=== PATIENT | female | born 1960 | race Caucasian/White ===

== ENCOUNTER 2018-12-26 05:32 | Inpatient (IN) | payer BC ==
[2018-12-26] MEDS: DEXAMETHASONE 4 MG/ML 1 ML INJ IV (06:32)
[2018-12-26] MEDS: oxyCODONE (CR) 10 MG TAB [oxyCONTIN] PO (06:32)
[2018-12-26] MEDS: LANSOPRAZOLE 30 MG CAP PO (06:32)
[2018-12-26] MEDS: ONDANSETRON 4 MG INJ IV (06:32)
[2018-12-26] MEDS: ACETAMINOPHEN 1000MG/100ML IV 100 ML IVPB (06:32)
[2018-12-26] MEDS: VANCOMYCIN 1 GM (PMX) 250 ML IVPB ×2 (06:36→17:58)
[2018-12-26] MEDS ORDERED: TRANEXAMIC ACID 1GM/100ML(PMX) 200 ML (07:03)
[2018-12-26] MEDS ORDERED: NEOSTIGMINE 3 MG/3 ML SYRINGE (07:41)
[2018-12-26] MEDS ORDERED: CEFAZOLIN 1 GM INJ (07:41)
[2018-12-26] MEDS ORDERED: ROCURONIUM 50 MG INJ (07:41)
[2018-12-26] MEDS ORDERED: PROPOFOL 20 ML (07:41)
[2018-12-26] MEDS ORDERED: GLYCOPYRROLATE 0.4 MG INJ (07:41)
[2018-12-26] MEDS ORDERED: MIDAZOLAM 1 MG/ML 2 ML INJ (07:43)
[2018-12-26] MEDS ORDERED: ONDANSETRON 4 MG INJ (07:43)
[2018-12-26] MEDS ORDERED: DEXAMETHASONE 4 MG/ML 5 ML INJ (07:43)
[2018-12-26] MEDS ORDERED: morphine SULFATE/PF (10 MG/10 ML) INJ (07:43)
[2018-12-26] MEDS ORDERED: FENTAnyl 50 MCG/ML VIAL (07:43)
[2018-12-26] MEDS: TRANEXAMIC ACID 1GM/100ML(PMX) 100 ML PRE-OP X1 IVPB (08:17)
[2018-12-26] MEDS ORDERED: HYDROmorphONE 0.5 MG/0.5 ML SYG IV ×2 (09:00)
[2018-12-26] MEDS ORDERED: HYDROmorphONE 1 MG/5 ML IV SYRINGE IV ×3 (09:00)
[2018-12-26] MEDS ORDERED: MEPERIDINE 25 MG INJ IV (09:00)
[2018-12-26] MEDS ORDERED: hydrALAzine 20 MG INJ IV (09:00)
[2018-12-26] MEDS ORDERED: NALBUPHINE HCL (10 MG/1 ML) INJ IV (09:00)
[2018-12-26] MEDS ORDERED: NALOXONE (0.4 MG/ML) INJ IV ×2 (09:00→10:30)
[2018-12-26] MEDS ORDERED: LABETALOL HCL 20MG INJ IV (09:00)
[2018-12-26] MEDS ORDERED: FENTAnyl 50 MCG/ML VIAL IV ×3 (09:00)
[2018-12-26] MEDS ORDERED: TRIMETHOBENZAMIDE 100 MG/ML VIAL IM ×2 (09:00)
[2018-12-26] MEDS ORDERED: ONDANSETRON 4 MG INJ IV ×2 (09:00)
[2018-12-26] MEDS ORDERED: ALBUTEROL 0.083% (NEB) 2.5 MG/3 ML AMP HHN (09:00)
[2018-12-26] MEDS ORDERED: MIDAZOLAM 1 MG/ML 2 ML INJ IV (09:00)
[2018-12-26] MEDS ORDERED: IPRATROPIUM (NEB) 0.5 MG/2.5 ML AMP HHN (09:00)
[2018-12-26] MEDS ORDERED: EPHEDrine 25 MG/5 ML SYG IV (09:00)
[2018-12-26] MEDS ORDERED: DIPHENHYDRAMINE 50 MG INJ IV ×2 (09:00)
[2018-12-26] MEDS: HIP PAIN COCKTAIL VANCO INJ (09:48)
[2018-12-26] MEDS: TRANEXAMIC ACID 1GM/100ML(PMX) 100 ML INTRA-OP X1 IVPB (09:49)
[2018-12-26] MEDS: BACITRACIN 50000 UNITS INJ (10:04)
[2018-12-26] MEDS ORDERED: SUGAMMADEX SODIUM 200 MG/2 ML VIAL IV (10:09)
[2018-12-26] MEDS: POLYMYXIN B 500000 UNIT INJ (10:10)
[2018-12-26] MEDS ORDERED: MAGNESIUM HYDROXIDE 30ML CUP PO (10:30)
[2018-12-26] MEDS ORDERED: BISACODYL 10 MG SUPP PR (10:30)
[2018-12-26] MEDS ORDERED: NACL 0.9% 3 ML SYG IV (10:30)
[2018-12-26] MEDS ORDERED: SENNA/DOCUSATE NA (8.6MG/50MG) TAB PO (10:30)
[2018-12-26] MEDS ORDERED: oxyCODONE 5 MG TAB PO (10:30)
[2018-12-26] MEDS ORDERED: NA PHOSPHATE/BIPHOS 133 ML ENEMA PR (10:30)
[2018-12-26] MEDS: DOCUSATE SODIUM 100 MG CAP PO (12:29)
[2018-12-26] MEDS: GABAPENTIN 100 MG CAP PO ×2 (12:40→20:57)
[2018-12-26] MEDS: LACTATED RINGER'S 1,000 ML IV (14:38)
[2018-12-26] MEDS: CEPASTAT LOZENGE MT (16:12)
[2018-12-26] MEDS: ATORVASTATIN 40 MG TAB PO (20:57)
[2018-12-27 05:12] LABS: WHITE BLOOD COUNT 9.4 10^3/ul (4.8-10.8)
[2018-12-27 05:12] LABS: ADD MAN DIFF? NO; BASOPHILS % 0.2 % (0.0-2.0); HEMATOCRIT 29.5 % (37.0-47.0); HEMOGLOBIN 9.7 g/dl (12.0-16.0); LYMPHOCYTES # 1.6 10^3/ul (0.8-2.9); LYMPHOCYTES % 16.5 % (15.0-51.0); MEAN CORPUSCULAR HEMOGLOBIN 30.8 pg (29.0-33.0); MEAN CORPUSCULAR HGB CONC 32.9 g/dl (32.0-37.0); MEAN CORPUSCULAR VOLUME 93.7 fl (82.0-101.0); MEAN PLATELET VOLUME 11.6 fl (7.4-10.4); MONOCYTE # 1.1 10^3/ul (0.3-0.9); MONOCYTES % 11.5 % (0.0-11.0); NEUTROPHIL # 6.8 10^3/ul (1.6-7.5); NEUTROPHILS % 71.6 % (39.0-77.0); PLATELET COUNT 230 10^3/UL (140-415); RED BLOOD COUNT 3.15 10^6/ul (4.20-5.40); RED CELL DISTRIBUTION WIDTH 13.7 % (11.5-14.5)
[2018-12-27] MEDS: VANCOMYCIN 1 GM (PMX) 250 ML IVPB (05:27)
[2018-12-27] MEDS: PANTOPRAZOLE (EC) 40 MG TAB PO (05:27)
[2018-12-27] MEDS: KETOROLAC 15 MG INJ IV (05:30)
[2018-12-27 05:33] LABS: ANION GAP 7 (5-13); BLOOD UREA NITROGEN 10 mg/dl (7-20); CALCIUM 9.2 mg/dl (8.4-10.2); CARBON DIOXIDE 28 mmol/L (21-31); CHLORIDE 105 mmol/L (97-110); CHOL/HDL RATIO 2.5 RATIO; CHOLESTEROL 167 mg/dl (100-200); CREATININE 0.61 mg/dl (0.44-1.00); Estimated GFR > 60 mL/min (>60); GLUCOSE 128 mg/dl (70-220); HDL CHOLESTEROL 65 mg/dl (35-98); LDL CHOLESTEROL,CALCULATED 73 mg/dl; MAGNESIUM 1.9 mg/dl (1.7-2.5); SODIUM 140 mmol/L (135-144); TRIGLYCERIDES 145 mg/dl (0-149)
[2018-12-27 05:41] LABS: INR 0.97
[2018-12-27] MEDS: METOPROLOL 25 MG TAB PO (08:12)
[2018-12-27] MEDS: LOSARTAN 50 MG TAB PO (08:12)
[2018-12-27] MEDS: GABAPENTIN 100 MG CAP PO ×2 (08:56→13:10)
[2018-12-27] MEDS: CELECOXIB 100 MG CAP PO (08:57)
[2018-12-27] MEDS: DOCUSATE SODIUM 100 MG CAP PO (08:57)
[2018-12-27] MEDS: ASPIRIN (EC) 81 MG TAB PO (08:57)
== END 2018-12-27 14:37 | disposition home health service (06) | DRG 470 ==
LOC: REC 05:32 → MS1 14:09
PROVIDERS: Orthopaedic Surgery Adult Reconstructive Orthopaedic Surgery
PROC: 0SRB04A Replacement of Left Hip Joint with Ceramic on Polyethylene Synthetic Substitute, Uncemented, Open Approach (ICD-10-PCS; principal; 2018-12-26 07:30)
PROC: 8E0YXBZ Computer Assisted Procedure of Lower Extremity (ICD-10-PCS; 2018-12-26 07:30)
DX: M16.12 Unilateral primary osteoarthritis, left hip (principal); I10 Essential (primary) hypertension; E78.5 Hyperlipidemia, unspecified; I25.10 Atherosclerotic heart disease of native coronary artery without angina pectoris; Z98.61 Coronary angioplasty status; M81.0 Age-related osteoporosis without current pathological fracture
CPT/HCPCS: 72170; 73500; 73530; 80048; 80061; 83735; 84100; 85025; 85610; 88304; 88311; 97110; 97116; 97161; 97167; 97530; 97535